=== PATIENT | male | born 1990 | race Caucasian/White ===

== ENCOUNTER 2021-06-07 11:46 | Emergency (ER) | payer OTHER ==
[~2021-06-07] VITALS: Ht 167.6 cm; Wt 72.1 kg
[2021-06-07 12:04] VITALS: BP 127/79
--- NOTE | 2021-06-07 12:08 | NUR ---
PT TO LOBBY.
--- NOTE | 2021-06-07 13:25 | NUR ---
SERAFIN MARSH WITH PT IN A FOR FURTHER EVALUATION.
[2021-06-07] MEDS ORDERED: NAPR-54 PO (13:27)
--- NOTE | 2021-06-07 13:28 | NUR ---
NO NURSING INTERVENTIONS DONE, NO COMPLETE ASSESSMENT NEEDED.
[2021-06-07 13:37] VITALS: BP 122/71
--- NOTE | 2021-06-07 13:37 | NUR ---
Patient discharged with v/s stable. Written and verbal after care instructions given and explained. Patient verbalized understanding. Ambulatory with steady gait. All questions addressed prior to discharge. Advised to follow up with PMD.
== END 2021-06-07 13:37 | disposition home or self-care (01) ==
LOC: MED 11:46
DX: M94.0 Chondrocostal junction syndrome [Tietze] (principal)
CPT/HCPCS: 81002; 99282; 99283